=== PATIENT | female | born 1990 | race Caucasian/White ===

== ENCOUNTER 2017-03-05 18:34 | Emergency (ER) | payer OTHER ==
[2017-03-05 20:14] LABS: BASOPHIL 0.1 % (0-2); BILIRUBIN NEGATIVE (NEGATIVE); BLOOD NEGATIVE Ery/uL (NEGATIVE); CLARITY CLEAR (CLEAR); COLOR YELLOW (YELLOW); EOSINOPHIL 1.2 % (0-5); GLUCOSE (U) NORMAL (NORMAL); HCT 36.3 % (37.0-47.0); HGB 12.7 g/dl (12.5-16.0); KETONE (U) 2+ (MODERATE) mg/dL (NEGATIVE); LEUKOCYTES NEGATIVE Leu/uL (NEGATIVE); MCH 27.4 pg (25.0-31.0); MCV 78.4 fL (78.0-100.0); MONOCYTE 5.6 % (0-12); MPV 9.5 fL (6.0-9.5); NEUTROPHIL 69.1 % (41-80); NITRITE NEGATIVE (NEGATIVE); PLT 342 K/uL (150-400); PROTEIN NEGATIVE (NEGATIVE); RBC 4.63 M/uL (4.20-5.40); RDW 14.5 % (11.5-14.0); SPECIFIC GRAVITY 1.025 (1.001-1.030); WBC 9.4 K/uL (4.0-10.5)
[2017-03-05 20:24] LABS: AMPHETAMINES NEGATIVE (NEGATIVE); BARBITURATES NEGATIVE (NEGATIVE); BENZODIAZEPINES NEGATIVE (NEGATIVE); COCAINE NEGATIVE (NEGATIVE); MARIJUANA (THC) NEGATIVE (NEGATIVE); METHADONE NEGATIVE (NEGATIVE); TRICYCLIC ANTIDEPRESSANT NEGATIVE (NEGATIVE)
[2017-03-05 20:30] LABS: ALBUMIN 3.9 g/dL (3.5-5.0); BILIRUBIN - TOTAL 0.2 mg/dL (0.1-1.0); CREATININE 0.6 mg/dL (0.5-1.0); GLOBULIN (CALCULATION) 3.6 g/dL (2.2-4.2); POTASSIUM 3.7 mmol/L (3.5-5.1); TOTAL PROTEIN 7.5 g/dL (6.4-8.3)
== END 2017-03-05 20:50 | disposition home or self-care (01) ==
LOC: FER 18:34
PROVIDERS: Emergency Medicine
DX: O99.281 Endocrine, nutritional and metabolic diseases complicating pregnancy, first trimester (principal); E86.0 Dehydration; O99.331 Smoking (tobacco) complicating pregnancy, first trimester; F17.200 Nicotine dependence, unspecified, uncomplicated; Z3A.12 12 weeks gestation of pregnancy
CPT/HCPCS: 36415; 80053; 80305; 81003; 85025

== ENCOUNTER 2022-04-03 20:47 | Emergency (ER) | payer OTHER ==
[~2022-04-03 20:47] MED LIST: VOLTAREN **OUT50 MG PO
[2022-04-03 21:11] LABS: HGB 14.7 g/dl (12.5-16.0); MCH 28.3 pg (25.0-31.0); MCV 80.9 fL (78.0-100.0); MPV 9.5 fL (6.0-9.5); RBC 5.19 M/uL (4.20-5.40); RDW 12.6 % (11.5-14.0)
[2022-04-03 21:28] LABS: BUN/CREAT RATIO (CALC) 14.5 RATIO; CREATININE 0.83 mg/dL (0.51-0.95); POTASSIUM 3.5 mmol/L (3.5-5.1)
[2022-04-03 21:41] LABS: ECSTASY (MDMA) NEGATIVE (NEGATIVE); MARIJUANA (THC) NEGATIVE (NEGATIVE); METHADONE NEGATIVE (NEGATIVE)
[2022-04-03 21:42] LABS: AMPHETAMINES NEGATIVE (NEGATIVE); BARBITURATES NEGATIVE (NEGATIVE); OPIATES NEGATIVE (NEGATIVE); OXYCODONE NEGATIVE (NEGATIVE)
== END 2022-04-03 22:19 | disposition home or self-care (01) ==
LOC: FER 20:47
PROVIDERS: Emergency Medicine
DX: R55 Syncope and collapse (principal)
CPT/HCPCS: 36415; 80048; 80305; 84703; 93005; J7030